=== PATIENT | male | born 1975 | race Caucasian/White ===

== ENCOUNTER 2019-12-21 15:16 | Emergency (ER) | payer BC ==
[2019-12-21 15:34] VITALS: BMI 26.6
--- NOTE | 2019-12-21 15:34 | PDOC ---
Rapid Medical Evaluation Chief Complaint: Shortness of Breath Time Seen by Provider: 12/21/19 15:19 Medical Evaluation: Allergies Allergy/AdvReac Type Severity Reaction Status Date / Time Penicillins Allergy Verified 12/21/19 15:19 Sulfa (Sulfonamide Allergy Verified 12/21/19 15:19 Antibiotics) Vital Signs Temp Pulse Resp BP Pulse Ox 98.3 F 87 18 133/94 100 12/21/19 15:17 12/21/19 15:17 12/21/19 15:17 12/21/19 15:17 12/21/19 15:17 12/21/19 15:28 HPI: The patient is a 44yo M presents with fevers at night and intermittent chest and back pains x 3 months with associated symptoms of anorexia x 5 days, complicated by this/these comorbidities: [none]. Patient seen PCP about issue who did blood work and chest x-rays and covid test which everything was fine few days ago. pt report he came in because he hasn't been able to sleep for the past 5 days and wants to know whats wrong. pt report he returned from [place] a month ago ROS: NEGATIVE: difficulty breathing, shortness of breath, chest pain, lightheadedness, dizziness, nausea, vomiting and diarrhea. Other 12 point ROS reviewed and negative. Exam: General: NAD, Well-Appearing, Awake, Alert Oriented x3. Vital signs stable. ENT: No rhinorrhea or nasal congestion. Neck: FROM, no midline tenderness. Lungs: Clear to auscultation bilaterally without wheezes, rhonchi or rales. Normal excursion. Patient is able to speak in full sentences. Heart: HR: [ ] Regular rhythm, S1-S2 present, no murmurs rubs or gallops. Abdomen: Non-distended. MSK/Extremities: No decrease ROM, No obvious deformities. No obvious cyanosis noted. Neuro: Normal Gait, Cranial Nerves II through XII Grossly Intact. Skin: No obvious rashes, bruising. Color Normal Appearing. Assessment/Plan: [Cough/fever] Patient has a history of this/these comorbidities: [none], denies recent travel and known COVID exposure. Patient does not meet testing criteria at this time. ASSESSMENT: Denies recent travel and known Covid exposure. labs and covid test done by pcp few days ago was normal Treatment: CXR dispo 12/21/19 16:15 CXR shows emmy hilar opacity. will transfer to main ED for workup to r/o any cardiac etiology imaging reviewed with Dr. Sanchez who agrees with plan Discharge Disposition - Diagnosis SOB (shortness of breath), Acute insomnia - Discharge Dispostion Condition at time of disposition: Stable - Referrals - Patient Instructions - Post Discharge Activity
--- NOTE | 2019-12-21 16:33 | PDOC ---
History of Present Illness - General Chief Complaint: Shortness of Breath Stated Complaint: SOB Time Seen by Provider: 12/21/19 15:19 History Source: Patient - History of Present Illness Initial Comments: 12/21/19 16:31 44M w/no PMH p/w 3 months of night sweats, nightly fevers, sob worse at night. He reports staying in [facility] for 3 months starting in August, unable to return to the [place] sooner due to COVID-19 pandemic. PCP: Dr. Lopez PERC negative low probability [place] Past History - Medical History Allergies/Adverse Reactions: Allergies Allergy/AdvReac Type Severity Reaction Status Date / Time Penicillins Allergy Verified 12/21/19 15:19 Sulfa (Sulfonamide Allergy Verified 12/21/19 15:19 Antibiotics) Home Medications: Ambulatory Orders No Home Medications 0 dose .ROUTE UTDICT 10/21/12 - Psycho-Social/Smoking History Smoking Status: No Smoking History: Never smoked Number of Cigarettes Smoked Daily: 0 - Substance Abuse Hx (Audit-C & DAST Scrn) How often the patient has a drink containing alcohol: Never Score: In Men: 4 or > Positive; In Women: 3 or > Positive: 0 Screen Result (Pos requires Nsg. Audit-10AR): Negative In the last yr the pt used illegal drug/Rx for NonMed reason: No Score: Yes response is considered Positive: 0 Screen Result (Positive result requires Nsg. DAST-10): Negative *Physical Exam - Vital Signs Last Vital Signs Temp Pulse Resp BP Pulse Ox 98.3 F 87 18 133/94 100 12/21/19 15:17 12/21/19 15:17 12/21/19 15:17 12/21/19 15:17 12/21/19 15:17 ED Treatment Course - LABORATORY CBC & Chemistry Diagram: 12/21/19 16:37 12/21/19 16:37 Discharge - Discharge Information Problems reviewed: Yes Clinical Impression/Diagnosis: SOB (shortness of breath) Condition: Stable Disposition: HOME - Admission No - Follow up/Referral Referrals: Priscilla Car MD [Staff Physician] - - Patient Discharge Instructions Patient Printed Discharge Instructions: DI for Shortness of Breath Additional Instructions: You were seen in the ER for fevers, shortness of breath for several months. Your bloodwork was normal. It is important that you follow up with your primary care provider as soon as possible, in the next 2-3 days. We are giving you a referral for an Infectious Disease specialist. Be sure to call to make an appointment as soon as possible, in the next 1-2 days. - Post Discharge Activity
--- NOTE | 2019-12-21 16:40 | PDOC ---
Attending Attestation - Resident Resident Name: Gaurav William - ED Attending Attestation I have performed the following: I have examined & evaluated the patient, The case was reviewed & discussed with the resident, I agree w/resident's findings & plan - HPI HPI: 12/21/19 18:14 44M w/no PMH p/w 3 months of night sweats, nightly fevers, sob worse at night, dry cough. He reports staying in [facility] for 3 months starting in August, unable to return to the [place] sooner due to COVID-19 pandemic. +diarrhea no hemoptysis, no sputum production, no chest pain, dizziness, AP, vomiting. intermittent back pains x 3 months with associated symptoms of anorexia x 5 days, complicated by this/these comorbidities: [none]. Patient seen PCP about issue who did blood work and chest x-rays and covid test which everything was fine few days ago. pt report he came in because he hasn't been able to sleep for the past 5 days and wants to know whats wrong. pt report he returned from [place] a month ago PCP: Dr. Lopez 12/21/19 18:57 12/21/19 18:58 - Physicial Exam PE: 12/21/19 18:14 Agree with the resident's HPI and PE as documented in the electronic medical record. NAD, well appearing, EOMI, PERRL, nl conjunctiva, anicteric; neck supple. lungs clear, RRR, abdomen soft nontender. No rebound, no guarding. Back nontender. ALMODOVAR x4, no focal neuro deficits. No peripheral edema. normal color for ethnicity, WWP. - Medical Decision Making 12/21/19 16:40 Vital Signs Temp Pulse Resp BP Pulse Ox 98.3 F 87 18 133/94 100 12/21/19 15:17 12/21/19 15:17 12/21/19 15:17 12/21/19 15:17 12/21/19 15:17 12/21/19 18:14 vitals reviewed, wnl, reassuring normal sats, 100% RA, no resp distress no fever nontoxic DDx SOB: ACS, PE, PTX, CHF, COPD exac, pulmonary edema, pleurisy, pneumonia, viral syndrome. effusion. anemia, electrolyte/metabolic derangements. TB,, covid 19 infection, parasitic infection, malaria. Considered but clinically doubt based on HPI and PE: Low suspicion for pulmonary embolism or dissection. perc is negative, low likelihood of PE, defer testing or dimer. ECG is sinus rhythm, nonischemic, unchanged from prior basic labs and lytes wnl neg trop neg bnp, unllikely fluid overload or cardiomyopathy cxr with prominent interstitial markings, no effusion, no mass or cavitary lesions, normal cardiac silhouette, no infiltrative findings. CT chest to eval for lesions, infection, edema IOC results_small anterior pericardial effusion; hazy and reticular atelectatic or fibrotic changes. otherwise no other pathology noted but pt does not have sx to suggest pathology; pt denies chest pain. ID followup, given his findings - Dr Car covid 19 infection, given his recent exposure/travel to [facility] parasite blood smear to eval for infection, given cyclical fevers. hold abx for now, as no clear source and VS wnl here and otherewise well appearing. could also be viral syndrome outpatient workup is appropriate. Pt to be discharged in stable condition. Patient and family made aware of clinical impression, treatment recommendations and disposition plan, return precautions discussed (including but not limited to new or persistent/worsening symptoms, pain, fevers, or signs of infection, chest pain, respiratory distress, inability to tolerate oral intake, dehydration, syncope, or neurologic change s). Follow up with PMD and/or ID specialist as recommended, follow up information provided, take medications as instructed for duration of time. continue with supportive care, avoid triggers and precipitants. All questions answered to patient's satisfaction and expressed understanding and comfort with this. At the time of discharge, the patient is alert, clinically improved, tolerating po and verbalizes understanding of instructions, satisfied with the care received and felt comfortable with the plan. Patient does not suffer from an acute life-threatening medical condition at this time and is safe for outpatient follow-up. 12/21/19 18:55 12/21/19 18:59 Heart Score/ECG Review #1 ECG reviewed & interpreted by me at: 16:35 General ECG Interpretation: Sinus Rhythm, Normal Rate Compared to previous ECG there are: No significant change 12/21/19 18:13 EKG normal sinus rhythm 63 bpm, no interval abnormalities, narrow QRS, ST and T wave segments and morphology normal. Nonspecific T wave abnormalities Discharge - Discharge Information Problems reviewed: Yes Clinical Impression/Diagnosis: SOB (shortness of breath) Condition: Stable Disposition: HOME - Admission No - Follow up/Referral Referrals: Priscilla Car MD [Staff Physician] - - Patient Discharge Instructions Patient Printed Discharge Instructions: DI for Shortness of Breath Additional Instructions: You were seen in the ER for fevers, shortness of breath for several months. Your bloodwork was normal. It is important that you follow up with your primary care provider as soon as possible, in the next 2-3 days. We are giving you a referral for an Infectious Disease specialist. Be sure to call to make an appointment as soon as possible, in the next 1-2 days. - Post Discharge Activity
[2019-12-21 16:54] LABS: BASO % 0.8 % (0-2.0); EOS % 3.6 % (0-4.5); HEMATOCRIT 48.6 % (35.4-49); HEMOGLOBIN 16.5 GM/dL (11.7-16.9); LYMPH % 29.8 % (8-40); MEAN CELL VOLUME 88.2 fl (80-96); MEAN PLT VOLUME 8.3 fl (7.5-11.1); MONO % 9.6 % (3.8-10.2); NEUT % 56.2 % (42.8-82.8); PLATELET COUNT 289 K/MM3 (134-434); RDW 14.1 % (11.9-15.9); WHITE BLOOD COUNT 8.7 K/mm3 (4.0-10.0)
[2019-12-21 17:27] LABS: ALK PHOS 73 U/L (45-117); ANION GAP 10 MMOL/L (8-16); BILIRUBIN,TOTAL 0.4 mg/dL (0.2-1); CALCIUM 9.1 mg/dL (8.5-10.1); CHLORIDE 106 mmol/L (98-107); CO2 25 mmol/L (21-32); CREATININE 0.9 mg/dL (0.55-1.3); GLUCOSE,RANDOM 90 mg/dL (74-106); POTASSIUM 4.4 mmol/L (3.5-5.1); SGOT/AST 48 U/L (15-37); SGPT/ALT 89 U/L (13-61); SODIUM 140 mmol/L (136-145); TOT PROT 7.7 g/dl (6.4-8.2)
[2019-12-21 17:47] LABS: URINE APPEARANCE CLEAR; URINE BILIRUBIN NEGATIVE (NEGATIVE); URINE COLOR YELLOW; URINE GLUCOSE (UA) NEGATIVE (NEGATIVE); URINE KETONE TRACE (NEGATIVE); URINE LEUK ESTERASE NEGATIVE (NEGATIVE); URINE NITRITE NEGATIVE (NEGATIVE); URINE PROTEIN NEGATIVE (NEGATIVE)
[2019-12-21 18:58] VITALS: BP 122/64; PULSE 69; TEMP 97.9
--- NOTE | 2019-12-22 14:04 | EKG ---
Test Reason : Blood Pressure : / mmHG Vent. Rate : 063 BPM Atrial Rate : 063 BPM P-R Int : 130 ms QRS Dur : 082 ms QT Int : 388 ms P-R-T Axes : 028 064 038 degrees QTc Int : 397 ms NORMAL SINUS RHYTHM NORMAL ECG WHEN COMPARED WITH ECG OF 21-OCT-2012 19:13, NO SIGNIFICANT CHANGE WAS FOUND Confirmed by ELI WHEELER MD ([id number]) on 12/22/2019 2:04:10 PM Referred By: Confirmed By:ELI WHEELER MD
== END 2019-12-21 18:58 | disposition home or self-care (01) ==
LOC: JER 15:16
DX: R06.02 Shortness of breath (principal)
CPT/HCPCS: 36415; 71045-TC-FY; 71250-TC; 80053; 81003; 82550; 83880; 84484; 85025; 87086; 93005; 93010; 99285-25; U0003

== ENCOUNTER 2022-04-03 15:43 | Emergency (ER) | payer BC, OTHER ==
[2022-04-03 15:50] VITALS: BP 140/91; PULSE 97; RESP 18; TEMP 98.9; BMI 29.6
[2022-04-03] MEDS ORDERED: DOXYCYCLINE HYCLATE 100 MG CAPSULE PO ONE ×3 (16:44→17:35)
== END 2022-04-03 17:40 | disposition home or self-care (01) ==
LOC: JERFT 15:43
PROC: 0H93XZZ Drainage of Left Ear Skin, External Approach (ICD-10-PCS; principal; 2022-04-03)
DX: L72.3 Sebaceous cyst (principal)
CPT/HCPCS: 99283-25

== ENCOUNTER 2022-07-17 12:35 | Emergency (ER) | payer BC ==
[2022-07-17 12:38] VITALS: BP 123/90; PULSE 120; RESP 18; TEMP 99.1; BMI 29.6
[2022-07-17] MEDS ORDERED: predniSONE 20 MG TABLET (UD) PO ONE (13:08)
[2022-07-17] MEDS ORDERED: ALBUTEROL SO4 2.5/IPRATROPIUM 0.5 INH SOL 3 ML VIAL.NEB. NEB ONE (13:08)
== END 2022-07-17 14:42 | disposition home or self-care (01) ==
LOC: JER 12:35
DX: U07.1 COVID-19 (principal)
CPT/HCPCS: 71046-TC-FY; 99281-25

== ENCOUNTER 2023-02-09 11:19 | Emergency (ER) | payer BC, OTHER ==
[2023-02-09 11:24] VITALS: BP 130/91; RESP 18; TEMP 97.9; BMI 29.9
[2023-02-09] MEDS ORDERED: SODIUM CHLORIDE 0.9% 500 ML INFUS.BAG IV ONE (12:35)
[2023-02-09] MEDS ORDERED: ONDANSETRON 4 MG/2 ML VIAL IVPUSH ONE (12:35)
[2023-02-09] MEDS ORDERED: ACETAMINOPHEN 1000 MG/100 ML BAG IVPB ONE (12:35)
[2023-02-09] MEDS ORDERED: ACETAMINOPHEN INJECTION 100 ML IVPB ONE (12:55)
[2023-02-09] MEDS ORDERED: ONDANSETRON 4 MG/2 ML VIAL ONE (12:55)
[2023-02-09 13:10] VITALS: PULSE 75
[2023-02-09 13:15] LABS: BASO % 0.9 % (0-2.0); EOS % 2.8 % (0-4.5); HEMATOCRIT 46.2 % (35.4-49); HEMOGLOBIN 15.9 GM/dL (11.7-16.9); LYMPH % 34.5 % (8-40); MCH 29.1 pg (25.7-33.7); MCHC 34.5 g/dl (32.0-35.9); MEAN CELL VOLUME 84.5 fl (80-96); MEAN PLT VOLUME 7.9 fl (7.5-11.1); MONO % 9.9 % (3.8-10.2); NEUT % 51.9 % (42.8-82.8); PLATELET COUNT 247 10^3/uL (134-434); RBC 5.47 M/mm3 (4.00-5.60); RDW 13.5 % (11.9-15.9)
[2023-02-09 13:21] LABS: PH,URINE 6.5 (5.0-8.0); URINE APPEARANCE CLEAR; URINE BILIRUBIN NEGATIVE (NEGATIVE); URINE COLOR YELLOW; URINE GLUCOSE (UA) NEGATIVE (NEGATIVE); URINE KETONE NEGATIVE (NEGATIVE); URINE LEUK ESTERASE NEGATIVE (NEGATIVE); URINE NITRITE NEGATIVE (NEGATIVE); URINE PROTEIN NEGATIVE (NEGATIVE)
[2023-02-09 13:48] LABS: POTASSIUM 4.4 mmol/L (3.5-5.1)
[2023-02-09 13:51] LABS: BLOOD UREA NITROGEN 15.1 mg/dL (7-18)
[2023-02-09 13:54] LABS: CREATININE 0.8 mg/dL (0.55-1.3)
[2023-02-09 13:56] LABS: BILIRUBIN,TOTAL 0.4 mg/dL (0.2-1); TOT PROT 7.4 g/dl (6.4-8.2)
== END 2023-02-09 17:58 | disposition home or self-care (01) ==
LOC: JER 11:19
PROC: 3E033NZ Introduction of Analgesics, Hypnotics, Sedatives into Peripheral Vein, Percutaneous Approach (ICD-10-PCS; principal; 2023-02-09)
PROC: 3E033GC Introduction of Other Therapeutic Substance into Peripheral Vein, Percutaneous Approach (ICD-10-PCS; 2023-02-09)
DX: R07.1 Chest pain on breathing (principal); R05.9 Cough, unspecified; R06.02 Shortness of breath; M25.561 Pain in right knee; R11.0 Nausea; R42 Dizziness and giddiness; R10.84 Generalized abdominal pain; R09.3 Abnormal sputum; R07.0 Pain in throat; Z20.822 Contact with and (suspected) exposure to COVID-19
CPT/HCPCS: 0241U-QW; 36415; 71045-TC-FY; 74177-TC; 80053; 81003; 83690; 84484; 85025; 93005; 93010; 99285-25; Q9967

== ENCOUNTER 2023-08-30 12:45 | Emergency (ER) | payer OTHER ==
[2023-08-30 12:52] VITALS: RESP 18; BMI 32.3
[2023-08-30] MEDS ORDERED: DEXAMETHASONE SOD PHOSPHATE 10 MG/1 ML VIAL ONE (13:59)
[2023-08-30] MEDS: DEXAMETHASONE SOD PHOSPHATE 10 MG/1 ML VIAL IVPUSH ONE (14:29)
[2023-08-30] MEDS: SODIUM CHLORIDE 0.9% 500 ML INFUS.BAG IV ONE (14:29)
[2023-08-30] MEDS: diphenhydrAMINE HCL 50 MG CAPSULE PO ONE (14:30)
[2023-08-30] MEDS: DEXAMETHASONE SOD PHOSPHATE 10 MG/1 ML VIAL IM ONE (14:30)
[2023-08-30] MEDS ORDERED: FAMOTIDINE 20 MG/50 ML IVPB 20 MG/50 ML MG IVPB ONE (14:41)
[2023-08-30] MEDS: FAMOTIDINE 20 MG/50 ML IVPB 20 MG/50 ML MG IVPB ONE (14:49)
[2023-08-30 16:00] VITALS: BP 122/69; PULSE 71; TEMP 98.8
== END 2023-08-30 16:49 | disposition home or self-care (01) ==
LOC: JER 12:45
PROC: 3E033GC Introduction of Other Therapeutic Substance into Peripheral Vein, Percutaneous Approach (ICD-10-PCS; principal; 2023-08-30)
PROC: 3E033GC Introduction of Other Therapeutic Substance into Peripheral Vein, Percutaneous Approach (ICD-10-PCS; 2023-08-30)
PROC: 3E033GC Introduction of Other Therapeutic Substance into Peripheral Vein, Percutaneous Approach (ICD-10-PCS; 2023-08-30)
DX: T78.40XA Allergy, unspecified, initial encounter (principal); L29.9 Pruritus, unspecified; R21 Rash and other nonspecific skin eruption; L50.0 Allergic urticaria
CPT/HCPCS: 99284-25; J1100

== ENCOUNTER 2023-09-25 10:40 | Emergency (ER) | payer OTHER ==
[2023-09-25 10:58] VITALS: TEMP 98.3; BMI 31.4
[2023-09-25 12:42] LABS: HEMATOCRIT 47.7 % (35.4-49); MCH 29.2 pg (25.7-33.7); MCHC 33.5 g/dl (32.0-35.9); MEAN CELL VOLUME 87.1 fl (80-96); MEAN PLT VOLUME 7.6 fl (7.5-11.1); PLATELET COUNT 257 10^3/uL (134-434); RBC 5.48 M/mm3 (4.00-5.60); RDW 14.1 % (11.9-15.9); WHITE BLOOD COUNT 10.2 K/mm3 (4.0-10.0)
[2023-09-25 12:48] LABS: INR 1.16 (0.83-1.09); PROTHROMBIN TIME (PATIENT) 13.4 SEC (9.7-13.0)
[2023-09-25 12:50] LABS: ACTIVATED PTT 29.3 SECONDS (25.2-36.5)
[2023-09-25 13:02] LABS: POTASSIUM 4.4 mmol/L (3.5-5.1)
[2023-09-25 13:04] LABS: BLOOD UREA NITROGEN 14.6 mg/dL (7-18); CALCIUM 8.9 mg/dL (8.5-10.1)
[2023-09-25 13:05] LABS: ALBUMIN 3.6 g/dl (3.4-5.0)
[2023-09-25] MEDS ORDERED: SUCRALFATE 1 GM TABLET (FP) ONE (13:05)
[2023-09-25] MEDS ORDERED: ACETAMINOPHEN INJECTION 100 ML IVPB ONE (13:06)
[2023-09-25] MEDS ORDERED: MAG HYDROX/AL HYDROX/SIMETH 30 ML UNIT-DOSE CUP ONE (13:06)
[2023-09-25] MEDS ORDERED: FAMOTIDINE 20 MG/50 ML IVPB 20 MG/50 ML MG IVPB ONE (13:06)
[2023-09-25 13:07] LABS: CREATININE 0.8 mg/dL (0.55-1.3)
[2023-09-25 13:10] LABS: BILIRUBIN,TOTAL 0.4 mg/dL (0.2-1); TOT PROT 7.2 g/dl (6.4-8.2)
[2023-09-25] MEDS: FAMOTIDINE 20 MG/50 ML IVPB 20 MG/50 ML MG IVPB ONE (13:16)
[2023-09-25] MEDS: MAG HYDROX/AL HYDROX/SIMETH -MYLANTA- ORAL SUSPENSION PO ONE (13:16)
[2023-09-25] MEDS: SUCRALFATE 1 GM TABLET (FP) PO ONE (13:16)
[2023-09-25] MEDS: ACETAMINOPHEN 1000 MG/100 ML BAG IVPB ONE (13:16)
[2023-09-25 13:17] LABS: ANISOCYTOSIS 0; HELMET CELLS 0; HOWELL-JOLLY BODIES 0; MACROCYTOSIS 0; OVALOCYTE 0; ROULEAU 0; SICKELED CELLS 0; TARGET CELLS 0; TEAR DROP CELLS 0; TOXIC GRANULATION 0
[2023-09-25 13:28] LABS: EPI CELLS 7 /uL (0-25.1); HYALINE CASTS 0 /uL (0-3.1); PH,URINE 5.5 (5.0-8.0); URINE APPEARANCE CLEAR; URINE BACTERIA 5 /uL (0-1359); URINE BILIRUBIN NEGATIVE (NEGATIVE); URINE COLOR YELLOW; URINE GLUCOSE (UA) NEGATIVE (NEGATIVE); URINE KETONE TRACE (NEGATIVE); URINE LEUK ESTERASE TRACE (NEGATIVE); URINE NITRITE NEGATIVE (NEGATIVE); URINE PROTEIN NEGATIVE (NEGATIVE); URINE RBC 10 /uL (0-23.9); URINE WBC 3 /uL (0-25.8)
[2023-09-25 16:42] VITALS: BP 132/91; PULSE 68; RESP 18
== END 2023-09-25 17:58 | disposition home or self-care (01) ==
LOC: JER 10:40
PROC: 3E033GC Introduction of Other Therapeutic Substance into Peripheral Vein, Percutaneous Approach (ICD-10-PCS; principal; 2023-09-25)
PROC: 3E030NZ Introduction of Analgesics, Hypnotics, Sedatives into Peripheral Vein, Open Approach (ICD-10-PCS; 2023-09-25)
DX: R07.9 Chest pain, unspecified (principal); R10.11 Right upper quadrant pain; R10.13 Epigastric pain; R10.31 Right lower quadrant pain; K59.00 Constipation, unspecified; R06.02 Shortness of breath; Z20.822 Contact with and (suspected) exposure to COVID-19
CPT/HCPCS: 0241U-QW; 36415; 71046-TC-FY; 74177-TC; 76705-TC; 80053; 81003; 83690; 84484; 85025; 85610; 85730; 87086; 93005; 93010; 99285-25; J0131; Q9967

== ENCOUNTER 2023-12-25 13:47 | Emergency (ER) | payer OTHER ==
[2023-12-25 13:52] VITALS: BP 141/86; PULSE 109; RESP 16; TEMP 98.7; BMI 28.9
[2023-12-25] MEDS ORDERED: ONDANSETRON 4 MG/2 ML VIAL ONE (15:03)
[2023-12-25] MEDS: SODIUM CHLORIDE 1,000 ML IV STA (15:12)
[2023-12-25] MEDS: ONDANSETRON 4 MG/2 ML VIAL IVPUSH ONE (15:12)
[2023-12-25 15:16] LABS: EOS % 1.3 % (0-4.5); HEMATOCRIT 44.7 % (35.4-49); HEMOGLOBIN 15.2 GM/dL (11.7-16.9); LYMPH % 24.1 % (8-40); MCH 29.2 pg (25.7-33.7); MCHC 33.9 g/dl (32.0-35.9); MEAN CELL VOLUME 86.1 fl (80-96); MEAN PLT VOLUME 7.7 fl (7.5-11.1); MONO % 8.7 % (3.8-10.2); NEUT % 64.9 % (42.8-82.8); PLATELET COUNT 232 10^3/uL (134-434); RBC 5.19 M/mm3 (4.00-5.60); RDW 13.3 % (11.9-15.9); WHITE BLOOD COUNT 9.1 K/mm3 (4.0-10.0)
[2023-12-25 15:41] LABS: POTASSIUM 4.2 mmol/L (3.5-5.1)
[2023-12-25 15:44] LABS: ALBUMIN 3.8 g/dl (3.4-5.0); BLOOD UREA NITROGEN 12.9 mg/dL (7-18); CALCIUM 9.1 mg/dL (8.5-10.1)
[2023-12-25 15:48] LABS: TOT PROT 7.6 g/dl (6.4-8.2)
[2023-12-25 15:49] LABS: BILIRUBIN,TOTAL 0.9 mg/dL (0.2-1)
[2023-12-25 16:00] LABS: URINE APPEARANCE CLEAR; URINE BILIRUBIN NEGATIVE (NEGATIVE); URINE COLOR YELLOW; URINE GLUCOSE (UA) NEGATIVE (NEGATIVE); URINE KETONE NEGATIVE (NEGATIVE); URINE LEUK ESTERASE NEGATIVE (NEGATIVE); URINE NITRITE NEGATIVE (NEGATIVE); URINE PROTEIN NEGATIVE (NEGATIVE)
[2023-12-25] MEDS ORDERED: KETOROLAC TROMETHAMINE 30 MG/1 ML VIAL ONE (16:18)
[2023-12-25] MEDS: KETOROLAC TROMETHAMINE 30 MG/1 ML VIAL IVPUSH ONE (16:39)
[2023-12-25] MEDS ORDERED: SODIUM PHOSPHATE/NA BIPHOS 133 ML ENEMA PR ONE (18:11)
== END 2023-12-25 18:14 | disposition home or self-care (01) ==
LOC: JER 13:47
PROC: 3E0333Z Introduction of Anti-inflammatory into Peripheral Vein, Percutaneous Approach (ICD-10-PCS; principal; 2023-12-25)
PROC: 3E033GC Introduction of Other Therapeutic Substance into Peripheral Vein, Percutaneous Approach (ICD-10-PCS; 2023-12-25)
PROC: 3E0337Z Introduction of Electrolytic and Water Balance Substance into Peripheral Vein, Percutaneous Approach (ICD-10-PCS; 2023-12-25)
DX: N20.0 Calculus of kidney (principal); K59.09 Other constipation; R10.84 Generalized abdominal pain; R31.9 Hematuria, unspecified
CPT/HCPCS: 36415; 74018-TC-FY; 74176-TC; 80053; 81003; 83690; 85025; 99285-25

== ENCOUNTER 2023-12-28 04:57 | Day surgery (SDC) | payer OTHER ==
[2023-12-26 15:52] VITALS: BMI 30.3
[2023-12-28 10:35] VITALS: TEMP 97.9
[2023-12-28 11:32] VITALS: BP 129/68; PULSE 67; RESP 17
== END 2023-12-28 11:20 | disposition home or self-care (01) ==
LOC: JASU-ENDO 04:57
PROVIDERS: ATTEND Internal Medicine Gastroenterology
PROC: 0DB68ZX Excision of Stomach, Via Natural or Artificial Opening Endoscopic, Diagnostic (ICD-10-PCS; 2023-12-28)
PROC: 0DB78ZX Excision of Stomach, Pylorus, Via Natural or Artificial Opening Endoscopic, Diagnostic (ICD-10-PCS; 2023-12-28)
PROC: 0DJD8ZZ Inspection of Lower Intestinal Tract, Via Natural or Artificial Opening Endoscopic (ICD-10-PCS; principal; 2023-12-28 09:45)
DX: Z12.11 Encounter for screening for malignant neoplasm of colon (principal); R10.84 Generalized abdominal pain; K59.00 Constipation, unspecified; K29.50 Unspecified chronic gastritis without bleeding; B96.81 Helicobacter pylori [H. pylori] as the cause of diseases classified elsewhere
CPT/HCPCS: 88305-TC; 88341-TC; 88342-TC

== ENCOUNTER 2023-12-29 19:11 | Inpatient (IN) | payer SELFPAY ==
[2023-12-29] MEDS ORDERED: ACETAMINOPHEN INJECTION 100 ML IVPB ONE (20:43)
[2023-12-29] MEDS: ACETAMINOPHEN 1000 MG/100 ML BAG IVPB ONE (20:51)
[2023-12-29 21:05] LABS: BASO % 0.9 % (0-2.0); EOS % 1.9 % (0-4.5); HEMATOCRIT 43.7 % (35.4-49); HEMOGLOBIN 14.6 GM/dL (11.7-16.9); MCH 28.5 pg (25.7-33.7); MCHC 33.5 g/dl (32.0-35.9); MEAN PLT VOLUME 7.4 fl (7.5-11.1); MONO % 10.5 % (3.8-10.2); NEUT % 63.7 % (42.8-82.8); PH,URINE 5.5 (5.0-8.0); PLATELET COUNT 237 10^3/uL (134-434); RBC 5.14 M/mm3 (4.00-5.60); RDW 13.6 % (11.9-15.9); URINE APPEARANCE CLEAR; URINE BILIRUBIN NEGATIVE (NEGATIVE); URINE COLOR YELLOW; URINE GLUCOSE (UA) NEGATIVE (NEGATIVE); URINE KETONE NEGATIVE (NEGATIVE); URINE LEUK ESTERASE NEGATIVE (NEGATIVE); URINE NITRITE NEGATIVE (NEGATIVE); URINE PROTEIN NEGATIVE (NEGATIVE); URINE UROBILINOGEN 0.2 mg/dL (0.2-1.0); WHITE BLOOD COUNT 10.8 K/mm3 (4.0-10.0)
[2023-12-29 21:26] LABS: POTASSIUM 4.2 mmol/L (3.5-5.1)
[2023-12-29 21:28] LABS: ALBUMIN 3.9 g/dl (3.4-5.0)
[2023-12-29 21:29] LABS: BLOOD UREA NITROGEN 15.4 mg/dL (7-18)
[2023-12-29 21:31] LABS: CREATININE 0.7 mg/dL (0.55-1.3)
[2023-12-29 21:33] LABS: BILIRUBIN,TOTAL 0.5 mg/dL (0.2-1); TOT PROT 7.5 g/dl (6.4-8.2)
[2023-12-29] MEDS ORDERED: morphine SULFATE 4 MG/ML VIAL ONE (21:45)
[2023-12-29] MEDS: morphine SULFATE 4 MG/ML VIAL IVPUSH ONE (21:55)
[2023-12-29] MEDS ORDERED: PANTOPRAZOLE SODIUM 40 MG/100 ML BAG IVPB ONE (22:37)
[2023-12-29] MEDS: PANTOPRAZOLE SODIUM 40 MG VIAL IVPUSH ONE (22:53)
[2023-12-30] MEDS: DEXTROSE 5%-NORMAL SALINE 1,000 ML IV SCH (03:44)
[2023-12-30 05:06] VITALS: BMI 28.8
[2023-12-30 08:23] LABS: INR 1.24 (0.83-1.09); PROTHROMBIN TIME (PATIENT) 13.9 SEC (9.7-13.0)
[2023-12-30 08:31] LABS: POTASSIUM 3.8 mmol/L (3.5-5.1)
[2023-12-30 08:32] LABS: BASO % 0.9 % (0-2.0); EOS % 2.5 % (0-4.5); HEMATOCRIT 40.4 % (35.4-49); HEMOGLOBIN 14.1 GM/dL (11.7-16.9); LYMPH % 28.7 % (8-40); MCH 29.6 pg (25.7-33.7); MCHC 34.9 g/dl (32.0-35.9); MEAN CELL VOLUME 84.7 fl (80-96); MEAN PLT VOLUME 7.8 fl (7.5-11.1); MONO % 11.2 % (3.8-10.2); NEUT % 56.7 % (42.8-82.8); PLATELET COUNT 220 10^3/uL (134-434); RBC 4.77 M/mm3 (4.00-5.60); RDW 13.5 % (11.9-15.9); WHITE BLOOD COUNT 8.2 K/mm3 (4.0-10.0)
[2023-12-30 08:39] LABS: ALBUMIN 3.7 g/dl (3.4-5.0); BLOOD UREA NITROGEN 16.8 mg/dL (7-18); CALCIUM 8.7 mg/dL (8.5-10.1); MAGNESIUM 2.2 mg/dL (1.8-2.4)
[2023-12-30] MEDS: ACETAMINOPHEN 1000 MG/100 ML BAG IVPB PRN ×2 (08:39→23:08)
[2023-12-30 08:42] LABS: CREATININE 0.8 mg/dL (0.55-1.3); PHOSPHOROUS 3.8 mg/dL (2.5-4.9)
[2023-12-30 08:44] LABS: BILIRUBIN,TOTAL 0.6 mg/dL (0.2-1)
[2023-12-30] MEDS: PANTOPRAZOLE SODIUM 40 MG VIAL IVPUSH SCH (10:22)
[2023-12-30] MEDS ORDERED: ACETAMINOPHEN 325 MG TABLET (FP) PO PRN (18:12)
[2023-12-30] MEDS: metroNIDAZOLE 250 MG TABLET PO SCH (23:05)
[2023-12-30] MEDS: CLARITHROMYCIN 500 MG TABLET (UD) PO SCH (23:06)
[2023-12-31 09:00] LABS: BASO % 0.8 % (0-2.0); EOS % 2.6 % (0-4.5); HEMATOCRIT 40.3 % (35.4-49); HEMOGLOBIN 13.9 GM/dL (11.7-16.9); LYMPH % 24.6 % (8-40); MCH 29.1 pg (25.7-33.7); MCHC 34.4 g/dl (32.0-35.9); MEAN CELL VOLUME 84.6 fl (80-96); MEAN PLT VOLUME 7.8 fl (7.5-11.1); MONO % 9.5 % (3.8-10.2); NEUT % 62.5 % (42.8-82.8); PLATELET COUNT 220 10^3/uL (134-434); RBC 4.77 M/mm3 (4.00-5.60); RDW 13.4 % (11.9-15.9); WHITE BLOOD COUNT 8.5 K/mm3 (4.0-10.0)
[2023-12-31 09:22] LABS: POTASSIUM 3.9 mmol/L (3.5-5.1)
[2023-12-31 09:26] LABS: ALBUMIN 3.4 g/dl (3.4-5.0); BLOOD UREA NITROGEN 9.6 mg/dL (7-18); CALCIUM 7.9 mg/dL (8.5-10.1); MAGNESIUM 2.1 mg/dL (1.8-2.4)
[2023-12-31 09:29] LABS: CREATININE 0.7 mg/dL (0.55-1.3)
[2023-12-31 09:30] LABS: BILIRUBIN,TOTAL 0.8 mg/dL (0.2-1); TOT PROT 6.9 g/dl (6.4-8.2)
[2023-12-31 15:37] VITALS: BP 136/91; PULSE 76; RESP 18; TEMP 98.2
== END 2023-12-31 16:36 | disposition home or self-care (01) | DRG 241 ==
LOC: JER 19:11 → JERBED 12-30 00:19 → J8W 12-30 02:05
PROVIDERS: ADMIT Internal Medicine
DX: K29.51 Unspecified chronic gastritis with bleeding (principal); N12 Tubulo-interstitial nephritis, not specified as acute or chronic; B96.81 Helicobacter pylori [H. pylori] as the cause of diseases classified elsewhere; K57.30 Diverticulosis of large intestine without perforation or abscess without bleeding; G89.29 Other chronic pain; E78.5 Hyperlipidemia, unspecified; N20.0 Calculus of kidney; K64.4 Residual hemorrhoidal skin tags; K76.0 Fatty (change of) liver, not elsewhere classified; R30.0 Dysuria; R31.9 Hematuria, unspecified; Z88.0 Allergy status to penicillin; Q63.2 Ectopic kidney
CPT/HCPCS: 0241U-QW; 36415; 74174-TC; 80053; 81003; 82272; 83605; 83735; 84100; 85025; 85610; 93005; 93010; 99285-25; J0131

== ENCOUNTER 2024-01-08 23:04 | Inpatient (IN) | payer BC ==
[2024-01-09 00:05] LABS: BASO % 0.5 % (0-2.0); EOS % 1.2 % (0-4.5); HEMATOCRIT 31.8 % (35.4-49); HEMOGLOBIN 10.5 GM/dL (11.7-16.9); LYMPH % 7.5 % (8-40); MCH 28.6 pg (25.7-33.7); MCHC 33.2 g/dl (32.0-35.9); MEAN CELL VOLUME 86.2 fl (80-96); MEAN PLT VOLUME 7.9 fl (7.5-11.1); MONO % 4.8 % (3.8-10.2); PLATELET COUNT 272 10^3/uL (134-434); RBC 3.69 M/mm3 (4.00-5.60); WHITE BLOOD COUNT 11.3 K/mm3 (4.0-10.0)
[2024-01-09 00:06] LABS: POTASSIUM 3.8 mmol/L (3.5-5.1)
[2024-01-09 00:07] LABS: CALCIUM 8.4 mg/dL (8.5-10.1)
[2024-01-09 00:08] LABS: ALBUMIN 3.7 g/dl (3.4-5.0); BLOOD UREA NITROGEN 8.9 mg/dL (7-18)
[2024-01-09 00:10] LABS: INR 1.3 (0.83-1.09); PROTHROMBIN TIME (PATIENT) 14.8 SEC (9.7-13.0)
[2024-01-09 00:11] LABS: CREATININE 0.8 mg/dL (0.55-1.3)
[2024-01-09 00:13] LABS: BILIRUBIN,TOTAL 0.6 mg/dL (0.2-1); TOT PROT 7.1 g/dl (6.4-8.2)
[2024-01-09] MEDS ORDERED: morphine SULFATE 4 MG/ML VIAL ONE (01:25)
[2024-01-09] MEDS: SODIUM CHLORIDE 0.9% 500 ML INFUS.BAG IV ONE (01:35)
[2024-01-09] MEDS: morphine CARPU-JECT 4 MG/1 ML DISP.SYRIN IVPUSH ONE (01:36)
[2024-01-09] MEDS ORDERED: metroNIDAZOLE 250 MG TABLET ONE ×2 (06:04→12:58)
[2024-01-09] MEDS: metroNIDAZOLE 500 MG TABLET PO SCH (06:14)
[2024-01-09] MEDS ORDERED: ACETAMINOPHEN INJECTION 100 ML IVPB ONE ×2 (06:16→16:18)
[2024-01-09] MEDS: ACETAMINOPHEN 1000 MG/100 ML BAG IVPB PRN (06:20)
[2024-01-09 07:28] LABS: HEMATOCRIT 30.5 % (35.4-49); HEMOGLOBIN 10.3 GM/dL (11.7-16.9); MCH 29.1 pg (25.7-33.7); MCHC 33.7 g/dl (32.0-35.9); MEAN CELL VOLUME 86.1 fl (80-96); MEAN PLT VOLUME 7.5 fl (7.5-11.1); PLATELET COUNT 268 10^3/uL (134-434); RBC 3.54 M/mm3 (4.00-5.60); RDW 13.8 % (11.9-15.9); WHITE BLOOD COUNT 9.3 K/mm3 (4.0-10.0)
[2024-01-09 07:40] LABS: POTASSIUM 4.1 mmol/L (3.5-5.1)
[2024-01-09 07:43] LABS: CALCIUM 7.8 mg/dL (8.5-10.1)
[2024-01-09 07:44] LABS: ALBUMIN 3.4 g/dl (3.4-5.0); BLOOD UREA NITROGEN 7.5 mg/dL (7-18); MAGNESIUM 2.3 mg/dL (1.8-2.4)
[2024-01-09 07:47] LABS: CREATININE 0.7 mg/dL (0.55-1.3)
[2024-01-09 07:49] LABS: BILIRUBIN,TOTAL 0.6 mg/dL (0.2-1); TOT PROT 6.4 g/dl (6.4-8.2)
[2024-01-09] MEDS ORDERED: PANTOPRAZOLE 40 MG TABLET PO ONE (09:13)
[2024-01-09] MEDS ORDERED: APIXABAN 5 MG TABLET ONE (09:14)
[2024-01-09] MEDS: PANTOPRAZOLE 40 MG TABLET PO SCH (09:17)
[2024-01-09] MEDS: APIXABAN 5 MG TABLET PO SCH (09:17)
[2024-01-09] MEDS ORDERED: DOCUSATE SODIUM 100 MG CAPSULE (FP) PO ONE (12:59)
[2024-01-09] MEDS: SENNOSIDES/DOCUSATE COMBO (SENNA PLUS) TABLET (UD) PO SCH (13:03)
[2024-01-09 21:08] VITALS: BMI 30.6
[2024-01-09] MEDS: DOXYCYCLINE HYCLATE 100 MG CAPSULE PO SCH (21:39)
[2024-01-10] MEDS: MELATONIN 5 MG TABLETS PO PRN (03:04)
[2024-01-10] MEDS: MAGNESIUM HYDROX 2400MG/30ML ORAL SUSPENSION 30 ML CUP PO PRN (06:36)
[2024-01-10] MEDS: BISACODYL 10 MG SUPP.RECT PR PRN (06:37)
[2024-01-10 06:54] LABS: BASO % 0.5 % (0-2.0); EOS % 2.5 % (0-4.5); HEMATOCRIT 32.5 % (35.4-49); HEMOGLOBIN 11.2 GM/dL (11.7-16.9); LYMPH % 16.6 % (8-40); MCH 29.6 pg (25.7-33.7); MCHC 34.4 g/dl (32.0-35.9); MEAN CELL VOLUME 86.1 fl (80-96); MEAN PLT VOLUME 7.6 fl (7.5-11.1); MONO % 10.6 % (3.8-10.2); NEUT % 69.8 % (42.8-82.8); PLATELET COUNT 297 10^3/uL (134-434); RBC 3.77 M/mm3 (4.00-5.60); RDW 13.7 % (11.9-15.9); WHITE BLOOD COUNT 10.9 K/mm3 (4.0-10.0)
[2024-01-10 07:10] LABS: POTASSIUM 4.3 mmol/L (3.5-5.1)
[2024-01-10 07:12] LABS: CALCIUM 8.6 mg/dL (8.5-10.1)
[2024-01-10 07:13] LABS: BLOOD UREA NITROGEN 7.1 mg/dL (7-18)
[2024-01-10 07:16] LABS: CREATININE 0.7 mg/dL (0.55-1.3)
[2024-01-10] MEDS: ACETAMINOPHEN 325 MG TABLET (FP) PO PRN (09:53)
[2024-01-10] MEDS: BISMUTH SUBSALICYLATE 524 MG/30 ML PO SCH (10:38)
[2024-01-10] MEDS ORDERED: MAG HYDROX/AL HYDROX/SIMETH 30 ML UNIT-DOSE CUP PO PRN (10:45)
[2024-01-10] MEDS: SODIUM PHOSPHATE/NA BIPHOS 133 ML ENEMA RC ONE (11:07)
[2024-01-11 09:05] LABS: BASO % 0.7 % (0-2.0); EOS % 2.2 % (0-4.5); HEMOGLOBIN 11.5 GM/dL (11.7-16.9); LYMPH % 16.5 % (8-40); MCH 28.9 pg (25.7-33.7); MCHC 33.9 g/dl (32.0-35.9); MEAN CELL VOLUME 85.4 fl (80-96); MEAN PLT VOLUME 7.2 fl (7.5-11.1); MONO % 9.5 % (3.8-10.2); NEUT % 71.1 % (42.8-82.8); PLATELET COUNT 334 10^3/uL (134-434); RBC 3.98 M/mm3 (4.00-5.60); RDW 13.8 % (11.9-15.9); WHITE BLOOD COUNT 10.4 K/mm3 (4.0-10.0)
[2024-01-11 09:27] LABS: POTASSIUM 4.3 mmol/L (3.5-5.1)
[2024-01-11 09:28] LABS: ALBUMIN 3.7 g/dl (3.4-5.0); CALCIUM 8.3 mg/dL (8.5-10.1)
[2024-01-11 09:31] LABS: CREATININE 0.7 mg/dL (0.55-1.3)
[2024-01-11 09:33] LABS: BILIRUBIN,TOTAL 0.6 mg/dL (0.2-1); TOT PROT 7.2 g/dl (6.4-8.2)
[2024-01-11] MEDS: traMADol HCL 50 MG TABLET PO PRN (10:04)
[2024-01-11] MEDS: POLYETHYLENE GLYCOL (HEALTHYLAX) 3350 17 GM PACKET PO SCH (10:41)
[2024-01-11] MEDS: MAG HYDROX/AL HYDROX/SIMETH 30 ML UNIT-DOSE CUP PO ONE (12:23)
[2024-01-11 14:09] LABS: INR 1.61 (0.83-1.09); PROTHROMBIN TIME (PATIENT) 17.9 SEC (9.7-13.0)
[2024-01-11 14:11] LABS: ACTIVATED PTT 34.6 SECONDS (25.2-36.5)
[2024-01-12 07:19] LABS: BASO % 0.6 % (0-2.0); EOS % 1.8 % (0-4.5); HEMOGLOBIN 11.4 GM/dL (11.7-16.9); LYMPH % 16.3 % (8-40); MCH 28.8 pg (25.7-33.7); MCHC 33.5 g/dl (32.0-35.9); MEAN CELL VOLUME 86.1 fl (80-96); MEAN PLT VOLUME 7.1 fl (7.5-11.1); MONO % 9.6 % (3.8-10.2); NEUT % 71.7 % (42.8-82.8); PLATELET COUNT 316 10^3/uL (134-434); RBC 3.95 M/mm3 (4.00-5.60); RDW 13.7 % (11.9-15.9); WHITE BLOOD COUNT 12.1 K/mm3 (4.0-10.0)
[2024-01-12 07:35] LABS: POTASSIUM 4.1 mmol/L (3.5-5.1)
[2024-01-12 07:51] LABS: ALBUMIN 3.6 g/dl (3.4-5.0)
[2024-01-12 07:53] LABS: CREATININE 0.7 mg/dL (0.55-1.3)
[2024-01-12 07:55] LABS: BILIRUBIN,TOTAL 0.8 mg/dL (0.2-1); TOT PROT 7.1 g/dl (6.4-8.2)
[2024-01-12] MEDS: ACETAMINOPHEN 325 MG TABLET (FP) PO PRN (11:04)
[2024-01-12] MEDS: PANTOPRAZOLE 40 MG TABLET PO SCH (11:04)
[2024-01-13 03:45] VITALS: BP 136/105; PULSE 106; RESP 19; TEMP 98.6
== END 2024-01-13 03:35 | disposition short-term general hospital (02) | DRG 441 ==
LOC: JER 23:04 → JERBED 01-09 02:39 → J4S 01-09 18:36 → OBSVTOIN 01-11 13:55
PROVIDERS: ADMIT Internal Medicine; ATTEND Nurse Practitioner
DX: I82.0 Budd-Chiari syndrome (principal); I26.99 Other pulmonary embolism without acute cor pulmonale; R18.8 Other ascites; K76.0 Fatty (change of) liver, not elsewhere classified; K59.00 Constipation, unspecified
CPT/HCPCS: 0241U-QW; 36415; 71045-TC-FY; 71275-TC; 74177-TC; 74183-TC; 80048; 80053; 83605; 83690; 83735; 83880; 84484; 85025; 85027; 85379; 85610; 85730; 86850; 86900; 86901; 87040; 87633; 93005; 93010; 99285-25; G0378; J0131; Q9967